=== PATIENT | male | born 1940 | race Two or more races ===

== ENCOUNTER 2022-10-27 11:15 | Emergency (ER) | payer OTHER ==
[~2022-10-27] VITALS: Ht 177.8 cm; Wt 82.0 kg
[2022-10-27 11:52] LABS: Basophils # (auto) 0.1 10 ^3/uL (0-0.2); Basophils % (auto) 0.8 % (0.0-2.0); Eosinophils # (auto) 0.1 10 ^3/uL (0-0.8); Eosinophils % (auto) 1.3 % (0.0-7.0); Hematocrit 41.1 % (41.0-53.0); Hemoglobin 13.7 g/dL (13.5-17.5); Lymphocytes # (auto) 1.1 10 ^3/uL (0.4-5.4); Lymphocytes % (auto) 15.3 % (10.0-50.0); Mean Corpuscular Hemoglobin 32.5 pg (28.0-32.0); Mean Corpuscular Hgb Conc. 33.4 g/dL (32.0-36.0); Mean Corpuscular Volume 97.3 fL (80.0-100.0); Monocytes # (auto) 0.6 10 ^3/uL (0-1.3); Monocytes % (auto) 7.9 % (0.0-12.0); Neutrophils # (auto) 5.3 10 ^3/uL (1.6-8.6); Neutrophils % (auto) 74.7 % (37.0-80.0); Red Blood Cells 4.23 10^6/uL (4.5-5.90); Red Cell Distribution Width 14.2 % (11.8-14.3)
[2022-10-27 12:07] LABS: INR 1.04 (0.9-1.15); Partial Thromboplastin Time 25.5 SEC (24.5-34.5)
[2022-10-27 12:11] LABS: Potassium 4.4 mmol/L (3.5-5.1)
[2022-10-27 12:16] LABS: Albumin 3.7 g/dL (3.4-5.0); BUN/Creatinine Ratio 12.7 (10.0-20.0); Bilirubin, Total 0.6 mg/dL (0.2-1.0); Calcium 9.1 mg/dL (8.5-10.1); Total Protein 7.5 g/dL (6.4-8.2)
[2022-10-27 12:46] LABS: Urine WBC None Seen /hpf (0 - 3)
[2022-10-27 13:04] LABS: Urine Blood 3+ /uL (Negative)
[2022-10-27 13:49] LABS: Urine Bacteria NONE SEEN /hpf (None Seen)
[2022-10-27 13:50] LABS: Urine Specific Gravity 1.018 (1.001-1.035)
[2022-10-27 16:39] VITALS: BP 162/87
== END 2022-10-27 16:48 | disposition home or self-care (01) ==
LOC: EDBD 11:15 → ER 11:15
DX: R31.0 Gross hematuria (principal); R19.7 Diarrhea, unspecified; E78.5 Hyperlipidemia, unspecified; I10 Essential (primary) hypertension
CPT/HCPCS: 36415; 80053; 81001; 85025; 85610; 85730

== ENCOUNTER 2022-11-02 08:17 | Emergency (ER) | payer OTHER ==
[~2022-11-02] VITALS: Ht 180.3 cm; Wt 63.0 kg
[2022-11-02 08:57] LABS: Urine Bacteria FEW /hpf (None Seen); Urine Blood 3+ /uL (Negative); Urine WBC 168 /hpf (0 - 3)
[2022-11-02 09:11] LABS: Basophils # (auto) 0 10 ^3/uL (0-0.2); Basophils % (auto) 0.5 % (0.0-2.0); Eosinophils # (auto) 0.2 10 ^3/uL (0-0.8); Eosinophils % (auto) 2.9 % (0.0-7.0); Hematocrit 41.1 % (41.0-53.0); Hemoglobin 13.7 g/dL (13.5-17.5); Lymphocytes # (auto) 1.2 10 ^3/uL (0.4-5.4); Lymphocytes % (auto) 14.1 % (10.0-50.0); Mean Corpuscular Hemoglobin 32.4 pg (28.0-32.0); Mean Corpuscular Hgb Conc. 33.3 g/dL (32.0-36.0); Mean Corpuscular Volume 97.3 fL (80.0-100.0); Monocytes # (auto) 0.7 10 ^3/uL (0-1.3); Monocytes % (auto) 7.9 % (0.0-12.0); Neutrophils # (auto) 6.3 10 ^3/uL (1.6-8.6); Neutrophils % (auto) 74.6 % (37.0-80.0); Red Blood Cells 4.22 10^6/uL (4.5-5.90); Red Cell Distribution Width 14.8 % (11.8-14.3); White Blood Cell 8.5 10^3/uL (4.4-10.8)
[2022-11-02 09:27] LABS: Albumin 3.3 g/dL (3.4-5.0); Calcium 9.1 mg/dL (8.5-10.1); Potassium 3.8 mmol/L (3.5-5.1)
[2022-11-02 09:31] LABS: BUN/Creatinine Ratio 21.7 (10.0-20.0); Bilirubin, Total 0.6 mg/dL (0.2-1.0); Total Protein 7.1 g/dL (6.4-8.2)
[2022-11-02] MEDS ORDERED: BACDST PO (11:32)
[2022-11-02 11:45] VITALS: BP 107/70
[2022-11-02] MEDS ORDERED: cefTRIAXone SOD 1,000 MG VL IM ONE (11:45)
== END 2022-11-02 12:02 | disposition left against medical advice (07) ==
LOC: EDSEX 08:17 → ER 08:17 → EDBD 08:17 → ER 12:02
DX: T83.038A Leakage of other urinary catheter, initial encounter (principal); N39.0 Urinary tract infection, site not specified; I10 Essential (primary) hypertension; E78.5 Hyperlipidemia, unspecified
CPT/HCPCS: 36415; 51702; 80053; 81001; 85025; 99284; J0696